=== PATIENT | male | born 1995 | race Caucasian/White ===

== ENCOUNTER 2017-10-20 00:42 | Day surgery (SDC) | payer OTHER ==
[~2017-10-20] VITALS: Ht 190.5 cm; Wt 73.9 kg
[~2017-10-20 00:42] MED LIST: ONDA4TAB97 PO; TRAM-420 PO
[2017-10-20] MEDS ORDERED: OXYMETAZOLINE SPRAY 15 ML BTL ONE (09:35)
[2017-10-20 11:22] VITALS: BP 128/76
[2017-10-20] MEDS ORDERED: MIDAZOLAM 2 MG/2 ML VIAL IVP PRN (11:35)
[2017-10-20] MEDS ORDERED: LIDOCAINE/SOD BICARB 8.4% SYR ID ONE (11:35)
[2017-10-20] MEDS ORDERED: ceFAZolin(*) 2GM/D5W 50ML 50 ML IVPB ONE (11:35)
[2017-10-20] MEDS ORDERED: NORMOSOL R SOLN(*) 1000 ML BAG 1,000 ML IV PRN (11:35)
[2017-10-20] MEDS ORDERED: FAMOTIDINE 20 MG TAB PO ONE (11:35)
[2017-10-20] MEDS ORDERED: DEXAMETHASONE SOD PHOS 10MG/ML ONE (11:57)
[2017-10-20] MEDS ORDERED: PROPOFOL EMUL(*) 10MG/ML 20 ML 20 ML ONE (11:57)
[2017-10-20] MEDS ORDERED: LIDOCAINE MPF 1% 5 ML VIAL ONE (11:57)
[2017-10-20] MEDS ORDERED: ONDANSETRON 4 MG/2 ML VIAL ONE (11:57)
[2017-10-20] MEDS ORDERED: fentaNYL CITR 100 MCG/2 ML AMP ONE ×3 (12:44→13:40)
[2017-10-20] MEDS ORDERED: HYDR-4309 PO (13:32)
[2017-10-20] MEDS ORDERED: CEFU500T10 PO (13:33)
[2017-10-20] MEDS ORDERED: APAP/HYDROCODONE 325/5 TAB ONE (14:00)
[2017-10-20 14:05] VITALS: BP 135/91
[2017-10-20 14:11] VITALS: BP 139/106
[2017-10-20 14:15] VITALS: BP 138/107
--- NOTE | 2017-10-21 17:11 | OPERATIVE REPORT 1 ---
EVENT DATE: October 20, 2017 SURGEON: Cristian Villanueva MD ANESTHESIOLOGIST: Ahmet Dove MD ANESTHESIA: LMA. PROCEDURE PERFORMED Closed reduction of nasal and septal fractures. PREOPERATIVE DIAGNOSES 1. Nasal fracture. 2. Septal fracture. POSTOPERATIVE DIAGNOSES 1. Nasal fracture. 2. Septal fracture. INDICATIONS Please refer to the preoperative note. DESCRIPTION OF PROCEDURE The patient was positively identified in the preoperative area. He was accompanied there by his mother. Risks were again explained and included, but were not limited to bleeding, infection, poor cosmetic result, and those associated with anesthesia. He acknowledged understanding of those risks. He was then brought back to the operating suite and laid supine on the operative table. LMA anesthesia was administered. Once asleep, the patient was positioned and prepped and draped in the usual sterile fashion. The patient had gross deviation of the bony nasal pyramid to the right and of the nasal septal cartilage to the left. I initially manually reduced the nasal bone fracture into the midline with a Tierney bar. I then used the same instruments to mobilized the fractured nasal septal into the midline. Bilateral nasal septal splints were then placed in the bilateral nasal cavities and secured to the columella with a suture. A rigid external nasal splint was placed. The patient was then turned to Anesthesia for emergence. Estimated blood loss was 10 mL. No complications. [facility]
== END 2017-10-20 14:05 | disposition home or self-care (01) ==
LOC: OR 00:42
PROVIDERS: ATTEND Otolaryngology
DX: S02.2XXA Fracture of nasal bones, initial encounter for closed fracture (principal)
CPT/HCPCS: 21315; 21337; J1100; J2001; J2405; J2704; J3010; J0690